=== PATIENT | female | born 1945 | race Caucasian/White ===

== ENCOUNTER 2016-12-25 20:18 | Emergency (ER) | payer MEDICARE, OTHER ==
[~2016-12-25] VITALS: Ht 152.4 cm; Wt 90.9 kg
[2016-12-25 20:50] VITALS: Ht 152.4 cm; Wt 90.9 kg
[2016-12-25] MEDS ORDERED: KETOROLAC 15 MG INJ IV STA (23:39)
[2016-12-25] MEDS ORDERED: SOD CHLORIDE 0.9% 1,000 ML IV STA (23:39)
[2016-12-26 00:13] LABS: ADD SCAN DIFF NO
[2016-12-26 00:15] LABS: BASOPHIL # 0.1 10^3/ul (0.0-0.1); EOSINOPHILS # 0.1 10^3/ul (0.0-0.5); EOSINOPHILS % 1.4 % (0.0-7.0); HEMATOCRIT 42.5 % (37.0-47.0); HEMOGLOBIN 13.4 g/dl (12.0-16.0); LYMPHOCYTES # 3.6 10^3/ul (0.8-2.9); LYMPHOCYTES % 36.6 % (15.0-51.0); MEAN CORPUSCULAR HEMOGLOBIN 27.6 pg (29.0-33.0); MEAN CORPUSCULAR HGB CONC 31.5 g/dl (32.0-37.0); MEAN CORPUSCULAR VOLUME 87.4 fl (82.0-101.0); MEAN PLATELET VOLUME 9.5 fl (7.4-10.4); MONOCYTE # 0.9 10^3/ul (0.3-0.9); MONOCYTES % 9.1 % (0.0-11.0); NEUTROPHIL # 5.1 10^3/ul (1.6-7.5); NEUTROPHILS % 51.5 % (39.0-77.0); PLATELET COUNT 240 10^3/UL (140-415); RED BLOOD COUNT 4.86 10^6/ul (4.20-5.40); RED CELL DISTRIBUTION WIDTH 14.1 % (11.5-14.5); WHITE BLOOD COUNT 9.9 10^3/ul (4.8-10.8)
[2016-12-26] MEDS ORDERED: CELE100C (00:15)
[2016-12-26] MEDS ORDERED: AMLO-218 PO (00:15)
[2016-12-26] MEDS ORDERED: TRAM-40 PO (00:15)
[2016-12-26] MEDS ORDERED: GABA100C14 PO (00:15)
[2016-12-26] MEDS ORDERED: ISOS5TAB2 PO (00:15)
[2016-12-26] MEDS ORDERED: ERGO500037 PO (00:15)
[2016-12-26] MEDS ORDERED: IBUP800T25 PO (00:15)
[2016-12-26] MEDS ORDERED: EZET10TA3 PO (00:15)
[2016-12-26] MEDS ORDERED: SIMV20TA PO (00:15)
[2016-12-26] MEDS ORDERED: METO100T13 PO (00:15)
--- NOTE | 2016-12-26 00:18 | RADRPT ---
PROCEDURE: CT Abdomen and pelvis without contrast. CLINICAL INDICATION: Abdominal pain. TECHNIQUE: CT scan of the abdomen and pelvis was performed on a multi-detector high-resolution CT scanner. Contiguous axial images were obtained from the lung bases to the ischial tuberosities wit hout intravenous contrast. Coronal and sagittal reformatted images were also obtained. Images were reviewed on the PACS workstation. One or more of the following dose reduction techniques were used: - Automated exposure control. - Adjustment of the mA and/or kV according to patient size. - Use of iterative reconstruction technique. Exam CTD/vol = 23.20 mGy. Total exam DLP = 1291.64 mGy-cm. COMPARISON: None. FINDINGS: Evaluation of the lung bases demonstrates no pleural or parenchymal disease. Abdomen: The liver is normal in size. There is no focal mass or dilatation of the biliary tree. T he gallbladder is not visualized. The spleen, pancreas and bilateral adrenal glands are within norm al limits. Bilateral kidneys are normal in size with a small cortical cyst within the mid right kid josé luis. There are bilateral parapelvic cysts. There is no radiopaque renal or ureteral calculus ident ified. There is no hydronephrosis or hydroureter. There is no retroperitoneal adenopathy. The abd ominal aorta is of normal caliber with scattered atherosclerotic calcifications. There is a moderate lower abdominal ventral hernia containing loops of bowel. There is no bowel obs truction or free air. The appendix is not visualized. There are no pericecal inflammatory changes to suggest appendicitis. There are scattered diverticuli within the descending and sigmoid colon wi thout evidence of diverticulitis. There is no ascites. Pelvis: The bladder is unremarkable. The uterus and adnexa are within normal limits. There is no significant pelvic adenopathy or free fluid. Evaluation of the osseous structures demonstrates no suspicious lytic or blastic lesion. IMPRESSION: Moderate lower abdominal ventral hernia containing multiple loops of bowel. There is no bowel obstr uction. Scattered diverticuli within the descending and sigmoid colon without evidence of diverticulitis. Gallbladder not visualized. Clinically correlate with prior cholecystectomy. Vascular calcifications reflective of atherosclerosis. Otherwise no acute abnormality identified within the abdomen and pelvis. .Jarred Roche MD, MD Date Time Electronically viewed and signed by .Jarred Roche MD, on 12/26/2016 00:18 .T/
[2016-12-26 00:35] LABS: ALANINE AMINOTRANSFERASE 34 IU/L (13-69); ALBUMIN 4.6 g/dl (3.3-4.9); ALKALINE PHOSPHATASE 80 IU/L (42-121); ANION GAP 13 (8-16); ASPARTATE AMINO TRANSFERASE 25 IU/L (15-46); BILIRUBIN,INDIRECT 0.3 mg/dl (0-1.1); BILIRUBIN,TOTAL 0.3 mg/dl (0.2-1.3); BLOOD UREA NITROGEN 20 mg/dl (7-20); CALCIUM 9.3 mg/dl (8.4-10.2); CARBON DIOXIDE 28 mmol/L (21-31); CHLORIDE 105 mmol/L (97-110); CREATININE 0.63 mg/dl (0.44-1.00); GLUCOSE 111 mg/dl (70-220); INR 0.91; PARTIAL THROMBOPLASTIN TIME 29.7 Sec (25.0-35.0); POTASSIUM 3.7 mmol/L (3.5-5.1); PROTIME 12.2 Sec (12.2-14.2); SODIUM 142 mmol/L (135-144); TOTAL PROTEIN 7.3 g/dl (6.1-8.1)
[2016-12-26 00:47] LABS: TROPONIN-I < 0.012 ng/ml (0.00-0.12)
[2016-12-26 01:12] LABS: ADD UMIC YES; URINE BILIRUBIN (Dip) NEGATIVE (NEGATIVE); URINE BLOOD (Dip) NEGATIVE (NEGATIVE); URINE COLOR LT. YELLOW (YELLOW); URINE GLUCOSE (Dip) NEGATIVE (NEGATIVE); URINE KETONES (Dip) NEGATIVE (NEGATIVE); URINE LEUKOCYTE ESTERASE (Dip) TRACE (NEGATIVE); URINE NITRITE (Dip) NEGATIVE (NEGATIVE); URINE TOTAL PROTEIN (Dip) NEGATIVE (NEGATIVE); URINE UROBILINOGEN (Dip) 0.2 E.U./dL (0.1-1.0)
[2016-12-26 01:34] LABS: BACTERIA,URINE OCCASIONAL; SQUAMOUS EPITHELIAL CELL,UR OCCASIONAL; URINE RBCS 0-2 /HPF (0)
[2016-12-26] MEDS ORDERED: CEFTRIAXONE 1 GM/50 ML (PMX) 50 ML IVPB ONE (02:00)
--- NOTE | 2016-12-26 02:06 | ERD ---
ER Documentation Chief Complaint Date/Time DATE: 12/26/16 TIME: 02:04 Chief Complaint LOWER RIGHT SIDED BACK PAIN, STATES OCCURED RIGHT AFTER HIGH BLOOD PRESSURE HPI This is a 71-year-old female who presents to the emergency room for evaluation of right-sided flank pain which occurred approximately 4 hours prior to arrival. She states that the pain is started to subside however she localizes to the right flank and states that has mild radiation to the groin. She states that sometimes worse with urination. She denies any fevers or chills associated with this and came to the ER for evaluation. Patient denies any aggravating or relieving factors for her symptoms. ROS All systems reviewed and are negative except as per history of present illness. Medications Home Meds Reported Medications Ergocalciferol (Vitamin D2) (VITAMIN D2) 50,000 Unit Capsule, 49696 UNIT PO, CAP 12/26/16 Celecoxib* (Celebrex*) 100 Mg Capsule, 100 MG, CAP 12/26/16 Simvastatin* (Zocor*) 20 Mg Tablet, 20 MG PO QHS, #30 TAB 12/26/16 Ezetimibe* (Zetia*) 10 Mg Tablet, 10 MG PO HS, TAB 12/26/16 Isosorbide Dinitrate* (Isosorbide Dinitrate*) Unknown Strength Tablet, 5 MG PO TID, TAB 12/26/16 Gabapentin* (Gabapentin*) 100 Mg Capsule, 100 MG PO BID, #90 CAP 12/26/16 Amlodipine Besylate* (Norvasc*) 10 Mg Tablet, 10 MG PO DAILY, TAB 12/26/16 Metoprolol Succinate* (Toprol XL*) 100 Mg Tab.sr.24h, 100 MG PO DAILY, #30 TAB 12/26/16 Tramadol Hcl* (Ultram*) 50 Mg Tablet, 100 MG PO Q8, TAB 12/26/16 Ibuprofen* (Motrin*) 800 Mg Tab, 800 MG PO TID, TAB 12/26/16 Allergies Allergies: Coded Allergies: No Known Allergy (Unverified , 12/26/16) PMhx/Soc History of Surgery: Yes (diverticulitis sx, cholecystectomy,appendectomy) Anesthesia Reaction: No Hx Neurological Disorder: No Hx Respiratory Disorders: No Hx Cardiac Disorders: Yes (HTN, high cholesterol) Hx Psychiatric Problems: No Hx Miscellaneous Medical Probl: Yes (diabetes) Hx Alcohol Use: No Hx Substance Use: No Hx Tobacco Use: No Smoking Status: Never smoker Physical Exam Vitals Vital Signs Date Time Temp Pulse Resp B/P Pulse Ox O2 Delivery O2 Flow Rate FiO2 12/25/16 23:39 77 17 189/86 94 Room Air 12/25/16 20:50 97.8 85 18 192/92 94 Physical Exam INITIAL VITAL SIGNS: Reviewed by me GENERAL: The patient is well developed and appropriate for usual state of health in no apparent distress HEENT: Pupils equal, round, and reactive to light. EOMI. There is no scleral icterus. NECK: C-spine is soft and supple, there is no meningismus. There is no cervical lymphadenopathy. LUNGS: Clear to auscultation bilaterally. There are no rales, wheezes or rhonchi. HEART: Regular rate and rhythm, no murmurs, clicks, rubs or gallops. ABDOMEN: Right-sided CVAT, soft, non-tender, non-distended. There are bowel sounds in all four quadrants. No rebound or guarding. EXTREMITIES: There is no peripheral cyanosis or edema. No focal swelling or erythema. NEUROLOGICAL: The patient moves all four extremities with 5/5 strength. Cranial nerves II - XII are intact. Normal gait. Alert and oriented SKIN: There is no apparent rash or petechiae. HEME/LYMPHATIC: There is no evidence of excessive bruising or lymphedema. PSYCHIATRIC: The patient does not appear anxious or depressed. Result Diagram: 12/25/16 0000 12/25/16 2350 Results 24 hrs Laboratory Tests Test 12/25/16 00:00 12/25/16 23:50 12/26/16 00:22 White Blood Count 9.910^3/ul Red Blood Count 4.8610^6/ul Hemoglobin 13.4g/dl Hematocrit 42.5% Mean Corpuscular Volume 87.4fl Mean Corpuscular Hemoglobin 27.6pg Mean Corpuscular Hemoglobin Concent 31.5g/dl Red Cell Distribution Width 14.1% Platelet Count 56392^3/UL Mean Platelet Volume 9.5fl Neutrophils % 51.5% Lymphocytes % 36.6% Monocytes % 9.1% Eosinophils % 1.4% Basophils % 1.0% Nucleated Red Blood Cells % 0.0/100WBC Neutrophils # 5.110^3/ul Lymphocytes # 3.610^3/ul Monocytes # 0.910^3/ul Eosinophils # 0.110^3/ul Basophils # 0.110^3/ul Nucleated Red Blood Cells # 0.010^3/ul Prothrombin Time 12.2Sec Prothrombin Time Ratio 1.0 INR International Normalized Ratio 0.91 Activated Partial Thromboplast Time 29.7Sec Sodium Level 142mmol/L Potassium Level 3.7mmol/L Chloride Level 105mmol/L Carbon Dioxide Level 28mmol/L Anion Gap 13 Blood Urea Nitrogen 20mg/dl Creatinine 0.63mg/dl Glucose Level 111mg/dl Calcium Level 9.3mg/dl Total Bilirubin 0.3mg/dl Direct Bilirubin 0.00mg/dl Indirect Bilirubin 0.3mg/dl Aspartate Amino Transf (AST/SGOT) 25IU/L Alanine Aminotransferase (ALT/SGPT) 34IU/L Alkaline Phosphatase 80IU/L Troponin I < 0.012ng/ml Total Protein 7.3g/dl Albumin 4.6g/dl Globulin 2.70g/dl Albumin/Globulin Ratio 1.70 Lipase 64U/L Urine Color LT. YELLOW Urine Clarity CLEAR Urine pH 6.0 Urine Specific Gepp 1.020 Urine Ketones NEGATIVE Urine Nitrite NEGATIVE Urine Bilirubin NEGATIVE Urine Urobilinogen 0.2 E.U./dL Urine Leukocyte Esterase TRACE Urine Microscopic RBC 0-2/HPF Urine Microscopic WBC 5-10/HPF Urine Squamous Epithelial Cells OCCASIONAL Urine Bacteria OCCASIONAL Urine Hyaline Casts OCCASIONAL Urine Hemoglobin NEGATIVE Urine Glucose NEGATIVE% Urine Total Protein NEGATIVE Current Medications Medications (Trade) Dose Ordered Sig/Malia Route PRN Reason Start Time Stop Time Status Last Admin Dose Admin Sodium Chloride (NS) 1,000 ml @ 1,000 mls/hr Q1H STAT IV 12/25/16 23:39 12/26/16 00:38 DC 12/25/16 23:39 Ketorolac Tromethamine 15 mg 15 mg ONCE STAT IV 12/25/16 23:39 12/25/16 23:41 DC 12/25/16 23:39 Ceftriaxone Sodium (Rocephin) 50 ml @ 100 mls/hr ONCE ONCE IVPB 12/26/16 02:00 12/26/16 02:29 Procedures/MDM CT abdomen pelvis without: Moderate lower abdominal ventral hernia containing multiple loops of bowel. There is no bowel obstruction. Scattered diverticuli within the descending and sigmoid colon without evidence of diverticulitis. Gallbladder not visualized. Clinically correlate with prior cholecystectomy. Vascular calcifications reflective of atherosclerosis. Otherwise no acute abnormality identified within the abdomen and pelvis. This 71-year-old female presents to the ER for evaluation of flank pain. I evaluate her and she did have right-sided CVAT. Lab work is within normal limits. Urinalysis does show some white blood cells in the urine. This patient could have cystitis which is traveling to the kidneys. She has no fevers, and was given Rocephin in the emergency room. She is hemodynamically stable. No chest pain or abdominal pain. My suspicion for aortic dissection is low at this time as this patient is sleeping comfortably upon my reevaluation and is not complaining of flank pain at this time. The patient will be discharged with a prescription for Macrobid, and Tylenol with codeine for breakthrough pain. Departure Diagnosis: Primary Impression: Acute cystitis Additional Impression: Flank pain Condition: Stable ALEXI ANTHONY DO Dec 26, 2016 02:06
[2016-12-26] MEDS ORDERED: ACET1TAB40 PO (02:07)
[2016-12-26] MEDS ORDERED: NITR-58 PO (02:07)
[2016-12-26 03:18] VITALS: BP 148/72; PULSE 72; RESP 16; TEMP 98.3
== END 2016-12-26 03:31 | disposition home or self-care (01) ==
LOC: E/R 20:18
DX: N30.00 Acute cystitis without hematuria (principal); R10.9 Unspecified abdominal pain; E11.9 Type 2 diabetes mellitus without complications; I10 Essential (primary) hypertension
CPT/HCPCS: 74176; 80053; 81001; 83690; 84484; 85025; 85610; 85730; 96374; 96375; 99285; J0696; J1885; J7030